=== PATIENT | male | born 1985 | race Two or more races ===

== ENCOUNTER 2022-09-02 09:17 | Emergency (ER) | payer OTHER ==
[~2022-09-02] VITALS: Ht 190.5 cm; Wt 70.3 kg
[2022-09-02] MEDS ORDERED: TUSSIN DM SYRU118 ML PO (12:18)
[2022-09-02] MEDS ORDERED: ZITHROMAX500 MG PO (12:18)
== END 2022-09-02 13:36 | disposition home or self-care (01) ==
LOC: ER 09:17
DX: B34.9 Viral infection, unspecified (principal); Z20.822 Contact with and (suspected) exposure to COVID-19